=== PATIENT | female | born 1995 | race Two or more races ===

== ENCOUNTER 2024-12-14 14:07 | Observation (INO) | payer MEDICAID, OTHER ==
[~2024-12-14] VITALS: Ht 154.9 cm; Wt 72.6 kg
--- NOTE | 2024-12-14 14:49 | DVH ---
OB ULTRASOUND, LIMITED CLINICAL INDICATION: nyasia check TECHNIQUE: Multiple grayscale ultrasound and M-mode images were obtained of the pelvis for evaluation of intrauterine . COMPARISON: None FINDINGS: A single living fetus is seen in cephalic presentation. Biophysical profile: 03/28 breathin movements: 2 tone: 2 Amniotic fluid: 2 Placenta: Fundal. Amniotic fluid: Visibly normal. NYASIA 13.06 cm heart rate: 143 beats/min. A complete anatomic survey was not performed on this exam. IMPRESSION: 1. Biophysical profile: 03/28 2. NYASIA 13.06 cm
--- NOTE | 2024-12-14 18:40 | DVHDS2 ---
Physician Discharge Progress N Final Diagnosis: IUP 36 wk, Oligohydramnios (resolved) Operations or Procedures: Operations or Procedures NST/BPP/ NYASIA all normal PATIENT: JESUS ALBERTO DEUTSCH ACCT: [id number] UNIT: [id number] : 1995 LOC: LD ROOM / BED: TRIAGE1 / A AGE / SEX: 29 / F ADM STATUS: ADM IN SERVICE 1407 ORDERING PHYSICIAN: ADAMARIS ECHEVERRIA DO PROCEDURE(s): BPP - BIOPHYSICAL PROFILE REASON: nyasia check ORDER NUMBER(s): [id number], ACCESSION NUMBER(s): [id number] OB ULTRASOUND, LIMITED CLINICAL INDICATION: nyasia check TECHNIQUE: Multiple grayscale ultrasound and M-mode images were obtained of the pelvis for evaluation of intrauterine . COMPARISON: None FINDINGS: A single living fetus is seen in cephalic presentation. Biophysical profile: 03/28 breathin movements: 2 tone: 2 Amniotic fluid: 2 Placenta: Fundal. Amniotic fluid: Visibly normal. NYASIA 13.06 cm heart rate: 143 beats/min. A complete anatomic survey was not performed on this exam. IMPRESSION: 1. Biophysical profile: 03/28 2. NYASIA 13.06 cm Condition on Discharge: Stable Disposition: Home Discharge Instructions: Diet: Regular Activity: No Restrictions, As Tolerated Follow Up/Referral: PRN Medications: NA Follow Up Care: Discharge Statement: "Patient was advised to return to the ER or call 911 if any headaches, dizziness, shortness of breath, chest pain, abdominal pain, bleeding, fevers, or worsening of medical condition. Patient was counseled about treatment plan, medications, possible side effects, patientverbalized understanding. All questions were answered to the best of my ability. This discharge took greater then 30 minutes in planning, reviewing documentation, counseling the patient, and discussing with other team members." Visit Coding OBGYN Date of Service: Dec 14, 2024 Billing Provider: ADAMARIS ECHEVERRIA DO LINER MAN Common Visit Codes: [id number] SAME DATE (MOD) ADAMARIS ECHEVERRIA DO Dec 14, 2024 18:40
== END 2024-12-14 15:22 | disposition home or self-care (01) ==
LOC: LDRP 14:07
PROVIDERS: ADMIT Obstetrics & Gynecology; ATTEND Obstetrics & Gynecology
DX: O41.03X0 Oligohydramnios, third trimester, not applicable or unspecified (principal); Z98.890 Other specified postprocedural states; Z79.899 Other long term (current) drug therapy; Z3A.36 36 weeks gestation of pregnancy
CPT/HCPCS: 59025; 76819; 81002; 94760; G0378

== ENCOUNTER 2024-12-17 19:03 | Inpatient (IN) | payer MEDICAID ==
[~2024-12-17] VITALS: Ht 154.9 cm; Wt 72.6 kg
[2024-12-17 21:02] LABS: Urine Bacteria None Seen /hpf (None Seen)
[2024-12-17 21:12] LABS: Basophils # (auto) 0 10 ^3/uL (0-0.2); Basophils % (auto) 0.3 % (0.0-2.0); Eosinophils # (auto) 0.1 10 ^3/uL (0-0.8); Eosinophils % (auto) 1.2 % (0.0-7.0); Hematocrit 32.4 % (36.0-46.0); Hemoglobin 10.7 g/dL (12.2-16.2); Lymphocytes # (auto) 1.9 10 ^3/uL (0.4-5.4); Lymphocytes % (auto) 22.2 % (10.0-50.0); Mean Corpuscular Hemoglobin 27.1 pg (28.0-32.0); Mean Corpuscular Volume 82.2 fL (80.0-100.0); Monocytes % (auto) 11.4 % (0.0-12.0); Neutrophils # (auto) 5.6 10 ^3/uL (1.6-8.6); Neutrophils % (auto) 64.9 % (37.0-80.0); Nucleated Red Blood Cells % 0.1 %; Platelet Count (auto) 246 10^3/uL (140-450); Red Blood Cells 3.94 10^6/uL (4.0-5.20); Red Cell Distribution Width 14.5 % (11.8-14.3); White Blood Cell 8.5 10^3/uL (4.4-10.8)
[2024-12-17 21:23] LABS: Alanine Aminotransferase 17 U/L (7-40); Albumin 3.8 g/dL (3.2-4.8); Anion Gap 10 (5-15); Aspartate Aminotransferase 19 U/L (13-40); BUN/Creatinine Ratio 10.6 (10.0-20.0); Bilirubin, Total 0.3 mg/dL (0.2-1.0); Calcium 9.5 mg/dL (8.7-10.4); Carbon Dioxide 21 mmol/L (20-31); Chloride 106 mmol/L (98-107); Glucose 96 mg/dL (74-106); Potassium 3.8 mmol/L (3.5-5.1); Sodium 137 mmol/L (136-145)
[2024-12-17 21:29] LABS: INR 0.94 (0.9-1.15); Partial Thromboplastin Time 27.1 SEC (24.5-34.5)
[2024-12-17 21:31] LABS: Amphetamine Screen, Urine Neg (NEGATIVE); Barbiturate Scree,Urine Neg (NEGATIVE); Benzodiazephine Screen, Urine Neg (NEGATIVE); Cannabinoid Screen, Urine Neg (NEGATIVE); Cocaine Screen, Urine Neg (NEGATIVE); Opiate Scree,Urine Neg (NEGATIVE); Phencyclidine Screen, Urine Neg (NEGATIVE)
[2024-12-17 21:31] LABS: Alkaline Phosphatase 190 U/L (46-116); Blood Urea Nitrogen 5 mg/dL (9-23)
[2024-12-17 21:33] LABS: Urine Blood Negative /uL (Negative); Urine Clarity Turbid (Clear); Urine Color Light-Yellow (Yellow); Urine Protein, UAD Negative (Negative); Urine Specific Gravity 1.008 (1.001-1.035); Urine Squamous Epithelial Cell MOD /hpf (<5); Urine Urobilinogen Normal (Negative); Urine WBC 2 /HPF (0-5); Urine pH 5.5 (5.0-9.0)
[2024-12-17] MEDS: miSOPROStol 50 MCG per PRE-CUT 1/2 TAB PO PRN (22:17)
--- NOTE | 2024-12-17 22:25 | DVHHP2 ---
OB CC & HPI Date Date of Admission: Dec 17, 2024 Patient Identification: : 2 Para: 1 EDC: December 22, 2024 EGA: 39.2wks Chief Complaints: Reason for admission: induction of labor Indication for induction: other (elective) History of Present Complaints 29yo IUP@39.2wks presents for scheduled elective IOL. Denies UCs/LOF/VB/MAYS/vision changes/RUQ pain. Endorses +FM and +BH occasionally. PNC: Routine PNC at [facility] OB, adequate visits, PNC uncomplicated. GTT wnl, dating based on LMP c/w 11wk sono, GBS positive. OB hx: x1, uncomplicated in 2016 Past Medical History Cardiac: No pertinent Hx Pulmonary: No pertinent Hx Central Nervous System: No pertinent Hx GI: No pertinent Hx Hemotology/Oncology: No pertinent Hx Hepatobiliary: No pertinent Hx Psychiatric: No pertinent Hx Musculoskeletal: No pertinent Hx Rheumotologic: No pertinent Hx Infectious Disease: No peritnent Hx ENT: No pertinent Hx Renal/: No pertinent Hx Endocrine: No pertinent Hx Dermatology: No pertinent Hx Past Surgical History: No pertinent Hx OB History OB History Care: Good Care Ultrasounds: Normal mid trimester US Obstetrical Complications: None Medical Complications: None Allergies: Coded Allergies: NO KNOWN ALLERGIES (Unverified , 12/14/24) Home Meds PNV Current Medications Current Medications Medications (Trade) Dose Ordered Sig/Rosina Route PRN Reason Start Time Stop Time Status Last Admin Lactated Ringer's 1,000 ml @ 125 mls/hr Q8H IV 12/17/24 20:15 Penicillin G Potassium [id number] units/Dextrose 50 ml @ 100 mls/hr Q4H IV 12/18/24 01:00 Demetrio Horan (Tucks) 1 pad PRN PRN TOP PERINEAL AREA DISCOMFORT 12/17/24 20:15 Sodium Lauryl Sulfate (Phisoderm) 240 ml PRN PRN TOP PERINEAL AREA DISCOMFORT 12/17/24 20:15 Benzocaine (Dermoplast) 1 applic PRN PRN TOP PERINEAL AREA DISCOMFORT 12/17/24 20:15 Lidocaine HCl (Xylocaine) 40 ml ONCE PRN IJ PERINEAL AREA DISCOMFORT 12/17/24 20:15 Misoprostol (Cytotec) 50 mcg Q4HPRN PRN PO CERVICAL RIPENING 12/17/24 22:00 UNV Family & Social History Family/Social History Past Family/Social History: denies Blood Type: A+ Rubella: not immune RPR/VDRL: Negative GBS Status: Positive HBsAG: Negative Review of Systems Constitutional: No symptom reported Ears, Nose, & Throat: No symptom reported Eyes: No symptom reported Pulmonary/Respiratory: No symptom reported Cardiovascular: No symptom reported Gastrointestinal: No symptom reported Genitourinary: No symptom reported Musculoskeletal: No symptom reported Skin: No symptom reported Psychiatric: No symptom reported Endocrine: No symptom reported Hemotologic/Lymphatic: No symptom reported OB Admission Exam Physical Exam Vitals: VSS, see CPN EFW in office today 7lbs 7oz, vertex HEENT: TMs Normal, Fontanelles Normal, Nasal Mucosa Normal, Eyes non-injected, Oropharynx Normal, PERRLA, Moist Membranes, EOMI Heart: Rhythm Normal Lungs: Clear Abdomen: Gravid Extremities: Normal Reflexes: Normal Pelvic Exam: SVE by CNM: 1.5/50/-2, intact, vertex Heart Rate: 120's Accelerations: Accelerations Present Decelerations: No Decelerations Supervisor In Circuit Testing Variability: Average (6-25) Contractions on Admission: None OB Plan Plan Admitting Diagnosis: 29yo IUP@39.2wks Elective Induction of Labor Category I EFM Intact Membranes GBS positive Plan: Induction Induction Methd: Misoprostol protocol Other Plan: Admit to L&D Informed consent obtained Discussed risks, benefits, alternatives of IOL with pt. Pt consents to IOL with cytotec. Start IV PCN when in active labor or ROM monitoring per order Routine labs ordered Pain mgmt PRN Frequent position changes in and out of bed encouraged Limit SVE unless necessary Intrauterine resuscitation PRN Anticipate CNM will consult with Dr. Alonso PRN Visit Coding OBGYN Date of Service: Dec 17, 2024 Billing Provider: AYDEE ARNOLD CNM HUMAN PERFORMANCE CONSULTANT Common Visit Codes: [id number] INP/OBS CARE (MOD) HUMAN PERFORMANCE CONSULTANT Procedure Codes: 82903-08- NON-STRESS TEST AYDEE ARNOLD CNM Dec 17, 2024 22:25
--- NOTE | 2024-12-18 09:10 | DVHPN2 ---
Chief Complaints Patient reports: No new complaints Nursing reports: No new complaints Objective Medications Current Medications Medications (Trade) Dose Ordered Sig/Rosina Route PRN Reason Start Time Stop Time Status Last Admin Benzocaine (Dermoplast) 1 applic PRN PRN TOP PERINEAL AREA DISCOMFORT 12/17/24 20:15 Lactated Ringer's 1,000 ml @ 125 mls/hr Q8H IV 12/17/24 20:15 Lidocaine HCl (Xylocaine) 40 ml ONCE PRN IJ PERINEAL AREA DISCOMFORT 12/17/24 20:15 Misoprostol (Cytotec) 50 mcg Q4HPRN PRN PO CERVICAL RIPENING 12/17/24 22:00 12/18/24 06:29 Penicillin G Potassium [id number] units/Dextrose 50 ml @ 100 mls/hr Q4H IV 12/18/24 01:00 Sodium Lauryl Sulfate (Phisoderm) 240 ml PRN PRN TOP PERINEAL AREA DISCOMFORT 12/17/24 20:15 Witch Marline (Tucks) 1 pad PRN PRN TOP PERINEAL AREA DISCOMFORT 12/17/24 20:15 Others ve-2cm/60/-2 Studies Laboratory Tests 12/17/24 20:44 Test 12/17/24 20:44 Range/Units Serum Glucose 96 74-106 mg/dL Ass/Plan Assessment iol Plan rec cytotec rec epidural supportive care Visit Coding OBGYN Date of Service: Dec 18, 2024 Billing Provider: SURJIT DUARTE DO LEAD REFINER Common Visit Codes: [id number] INP/OBS CARE(HIGH) LEAD REFINER Procedure Codes: 74633-48- NON-STRESS TEST SURJIT DUARTE DO Dec 18, 2024 09:10
[2024-12-18] MEDS: WITCH HAZEL-GLYCERIN PAD TOP PRN (09:46)
[2024-12-18] MEDS: PHISODERM TOP SOLN 240ML BTL TOP PRN (09:46)
[2024-12-18] MEDS: DERMOPLAST 60ML BOTTLE TOP PRN (09:46)
[2024-12-18] MEDS: PENICILLIN G POT 5MIL/D5 50ML 50 ML IV ONE (10:10)
[2024-12-18] MEDS ORDERED: NALOXONE HCL 0.4 MG/ML VIAL IV ONE (10:15)
[2024-12-18] MEDS: ePHEDrine SULFATE 50 MG/ML AMP IV ONE (12:32)
[2024-12-18] MEDS ORDERED: TERBUTALINE SULFATE 1 MG/ML 1ML VIAL SC PRN (12:45)
[2024-12-18] MEDS: PENICILLIN G POTASSIUM 2,500,000 UNITS in D5W 5% 50 ML IV SCH (14:10)
[2024-12-18] MEDS: LACTATED RINGER'S 1,000 ML IV SCH (14:11)
[2024-12-18] MEDS: ROPIVACAINE HCL 200 ML ONE (14:16)
[2024-12-18] MEDS: LACT. RINGERS/OXYTOCIN 20UNITS 1,000 ML IV SCH (14:17)
--- NOTE | 2024-12-18 15:43 | DVHPN2 ---
CNM Labor Progress Note Date and Time Seen Date Seen: Dec 18, 2024 Time Seen: 15:00 Subjective Patient reports: No new complaints Subjective Comment Pt feels good post epidural; resting on her left side Objective Vital Signs VSS. see chart Monitoring Method Monitoring Method: External Heart Rate Heart Rate Baseline: 130 Heart Rate Variability: Moderate Presence of FHR Accelerations: Yes Presence of FHR Decelerations: No Changes in Trends of Patterns: No Are all 5 Components of the FH: Yes Contractions Contractions Frequency: Other (2-5) Duration of Contraction: 70 Contractions Intensity: Moderate Contractions Resting Tone: Relaxed Membranes Membranes: Intact Vaginal Exam Vag Exam Deferred: Yes (RN vaginal exam at 1139: 4-5/70%/-2) Medications Medications - Pitocin: Yes (4 mUs) Medication - Epidural: Yes Lab Results Lab Results Current Medications Medications (Trade) Dose Ordered Sig/Rosina Start Time Stop Time Status Last Admin Dose Admin Lactated Ringer's 1,000 ml @ 125 mls/hr Q8H 12/17/24 20:15 12/18/24 14:11 125 MLS/HR Penicillin G Potassium 50 ml @ 100 mls/hr ONCE ONCE 12/17/24 21:00 12/17/24 21:29 DC 12/18/24 10:10 100 MLS/HR Penicillin G Potassium [id number] units/Dextrose 50 ml @ 100 mls/hr Q4H 12/18/24 01:00 12/18/24 14:10 100 MLS/HR Witch Marline (Tucks) 1 pad PRN PRN 12/17/24 20:15 12/18/24 09:46 1 PAD Sodium Lauryl Sulfate (Phisoderm) 240 ml PRN PRN 12/17/24 20:15 12/18/24 09:46 240 ML Benzocaine (Dermoplast) 1 applic PRN PRN 12/17/24 20:15 12/18/24 09:46 1 APPLIC Lidocaine HCl (Xylocaine) 40 ml ONCE PRN 12/17/24 20:15 Oxytocin 500 ml @ 999 mls/hr Q31M ONCE 12/18/24 08:00 12/18/24 08:30 DC Oxytocin 500 ml @ 125 mls/hr Q4H ONCE 12/18/24 08:30 12/18/24 12:29 DC Misoprostol (Cytotec) 50 mcg Q4HPRN PRN 12/17/24 22:00 12/18/24 06:29 50 MCG Naloxone HCl (Narcan) 0.2 mg PRN ONCE 12/18/24 10:15 12/18/24 10:16 DC Ephedrine Sulfate (ePHEDrine SULFATE) 10 mg PRN ONCE 12/18/24 10:15 12/18/24 10:16 DC 12/18/24 12:32 5 MG Oxytocin 1,000 ml @ 6 ml/hr Q24H 12/18/24 12:45 12/18/24 14:17 6 ML/HR Terbutaline Sulfate (Brethine Inj) 0.25 mg ONCE PRN 12/18/24 12:45 Laboratory Tests Test 12/17/24 20:44 12/17/24 20:20 Range/Units White Blood Count 8.5 4.4-10.8 10^3/uL Red Blood Count 3.94 L 4.0-5.20 10^6/uL Hemoglobin 10.7 L 12.2-16.2 g/dL Hematocrit 32.4 L 36.0-46.0 % Mean Corpuscular Volume 82.2 80.0-100.0 fL Mean Corpuscular Hemoglobin 27.1 L 28.0-32.0 pg Mean Corpuscular Hemoglobin Concent 33.0 32.0-36.0 g/dL Red Cell Distribution Width 14.5 H 11.8-14.3 % Platelet Count 246 140-450 10^3/uL Mean Platelet Volume 8.1 6.9-10.8 fL Neutrophils (%) (Auto) 64.9 37.0-80.0 % Lymphocytes (%) (Auto) 22.2 10.0-50.0 % Monocytes (%) (Auto) 11.4 0.0-12.0 % Eosinophils (%) (Auto) 1.2 0.0-7.0 % Basophils (%) (Auto) 0.3 0.0-2.0 % Neutrophils # (Auto) 5.6 1.6-8.6 10 ^3/uL Lymphocytes # (Auto) 1.9 0.4-5.4 10 ^3/uL Monocytes # (Auto) 1.0 0-1.3 10 ^3/uL Eosinophils # (Auto) 0.1 0-0.8 10 ^3/uL Basophils # (Auto) 0 0-0.2 10 ^3/uL Nucleated Red Blood Cells 0.1 % Prothrombin Time 10.0 9.3-11.8 sec Prothrombin Time INR 0.94 0.9-1.15 Activated Partial Thromboplast Time 27.1 24.5-34.5 SEC Sodium Level 137 136-145 mmol/L Potassium Level 3.8 3.5-5.1 mmol/L Chloride Level 106 98-107 mmol/L Carbon Dioxide Level 21 20-31 mmol/L Anion Gap 10 5-15 Blood Urea Nitrogen 5 L 9-23 mg/dL Creatinine 0.47 L 0.550-1.02 mg/dL Glomerular Filtration Rate Calc 131 >90 mL/min BUN/Creatinine Ratio 10.6 10.0-20.0 Serum Glucose 96 74-106 mg/dL Calcium Level 9.5 8.7-10.4 mg/dL Total Bilirubin 0.3 0.2-1.0 mg/dL Aspartate Amino Transferase (AST) 19 13-40 U/L Alanine Aminotransferase (ALT) 17 7-40 U/L Alkaline Phosphatase 190 H 46-116 U/L Total Protein 6.0 5.7-8.2 g/dL Albumin 3.8 3.2-4.8 g/dL Treponema pallidum Antibody Non-reactive Negative Urine Color Light-yellow Yellow Urine Clarity Turbid H Clear Urine pH 5.5 5.0-9.0 Urine Specific [place] 1.008 1.001-1.035 Urine Protein Negative Negative Urine Ketones Negative Negative Urine Blood Negative Negative /uL Urine Nitrite Negative Negative Urine Bilirubin Negative Negative Urine Urobilinogen Normal Negative mg/dL Urine Leukocyte Esterase Negative Negative /uL Urine RBC 1 0 - 4 /hpf Urine Microscopic WBC 2 0-5 /HPF Urine Squamous Epithelial Cells Mod <5 /hpf Urine Bacteria None seen None Seen /hpf Urine Glucose Normal Normal mg/dL Urine Opiates Screen Neg NEGATIVE Urine Fentanyl Screen Neg NEGATIVE Urine Barbiturates Screen Neg NEGATIVE Urine Phencyclidine Screen Neg NEGATIVE Urine Amphetamines Screen Neg NEGATIVE Urine Benzodiazepines Screen Neg NEGATIVE Urine Cocaine Screen Neg NEGATIVE Urine Cannabinoids Screen Neg NEGATIVE Assessment Assessment 29yo IUP@39.3wks Elective Induction of Labor Category I EFM Intact Membranes GBS positive Plan Plan Continue induction with Pitocin per protocol Continue IV PCN until delivery Continuous monitoring Pain mgmt via epidural anesthesia Frequent position changes in bed encouraged Limit SVE unless necessary Intrauterine resuscitation PRN Anticipate CNM will consult with Dr. Alonso PRN Plan discussed with: Patient, Spouse Visit Coding OBGYN Date of Service: Dec 18, 2024 Billing Provider: AYDEE ARNOLD CNM ATHLETIC FIELD CUSTODIAN Common Visit Codes: [id number] INP/OBS CARE(MOD) JESÚS SMITH MDWF Dec 18, 2024 15:43
--- NOTE | 2024-12-18 18:26 | DVHPN2 ---
CNM Labor Progress Note Date and Time Seen Date Seen: Dec 18, 2024 Time Seen: 18:05 Subjective Patient reports: Other Subjective Comment Pt reports feeling intermittent pressure and feels like water is coming out of her vagina Objective Vital Signs VSS, see chart Monitoring Method Monitoring Method: External Heart Rate Heart Rate Baseline: 130 Heart Rate Variability: Moderate Presence of FHR Accelerations: Yes Presence of FHR Decelerations: Yes Heart Rate Type of Decel: Variable Decelerations Changes in Trends of Patterns: Yes Comment on Trends or Patterns: maternal position changed Are all 5 Components of the FH: Yes Contractions Contractions Frequency: Other (2-4) Duration of Contraction: 70 Contractions Intensity: Strong Membranes Membranes: Ruptured Amniotic Fluid Color: Clear, Bloody Vaginal Exam Vag Exam Deferred: No (6.5 dilation) Vaginal Exam Effacement: 90 Vaginal Exam Station: -1 Vaginal Exam Presentation: VTX Vaginal Exam Show: Small Medications Medications - Pitocin: Yes (10mU dropped down to 6 mU based on FHR tracing) Medication - Epidural: Yes Medication - Other IV PCN for GBS+ s/p 3 doses of cytotec Lab Results Lab Results Current Medications Medications (Trade) Dose Ordered Sig/Rosina Start Time Stop Time Status Last Admin Dose Admin Lactated Ringer's 1,000 ml @ 125 mls/hr Q8H 12/17/24 20:15 12/18/24 14:11 125 MLS/HR Penicillin G Potassium 50 ml @ 100 mls/hr ONCE ONCE 12/17/24 21:00 12/17/24 21:29 DC 12/18/24 10:10 100 MLS/HR Penicillin G Potassium [id number] units/Dextrose 50 ml @ 100 mls/hr Q4H 12/18/24 01:00 12/18/24 18:22 100 MLS/HR Demetrio Horan (Tucks) 1 pad PRN PRN 12/17/24 20:15 12/18/24 09:46 1 PAD Sodium Lauryl Sulfate (Phisoderm) 240 ml PRN PRN 12/17/24 20:15 12/18/24 09:46 240 ML Benzocaine (Dermoplast) 1 applic PRN PRN 12/17/24 20:15 12/18/24 09:46 1 APPLIC Lidocaine HCl (Xylocaine) 40 ml ONCE PRN 12/17/24 20:15 Oxytocin 500 ml @ 999 mls/hr Q31M ONCE 12/18/24 08:00 12/18/24 08:30 DC Oxytocin 500 ml @ 125 mls/hr Q4H ONCE 12/18/24 08:30 12/18/24 12:29 DC Misoprostol (Cytotec) 50 mcg Q4HPRN PRN 12/17/24 22:00 12/18/24 06:29 50 MCG Naloxone HCl (Narcan) 0.2 mg PRN ONCE 12/18/24 10:15 12/18/24 10:16 DC Ephedrine Sulfate (ePHEDrine SULFATE) 10 mg PRN ONCE 12/18/24 10:15 12/18/24 10:16 DC 12/18/24 12:32 5 MG Oxytocin 1,000 ml @ 6 ml/hr Q24H 12/18/24 12:45 12/18/24 14:17 6 ML/HR Terbutaline Sulfate (Brethine Inj) 0.25 mg ONCE PRN 12/18/24 12:45 Laboratory Tests Test 12/17/24 20:44 12/17/24 20:20 Range/Units White Blood Count 8.5 4.4-10.8 10^3/uL Red Blood Count 3.94 L 4.0-5.20 10^6/uL Hemoglobin 10.7 L 12.2-16.2 g/dL Hematocrit 32.4 L 36.0-46.0 % Mean Corpuscular Volume 82.2 80.0-100.0 fL Mean Corpuscular Hemoglobin 27.1 L 28.0-32.0 pg Mean Corpuscular Hemoglobin Concent 33.0 32.0-36.0 g/dL Red Cell Distribution Width 14.5 H 11.8-14.3 % Platelet Count 246 140-450 10^3/uL Mean Platelet Volume 8.1 6.9-10.8 fL Neutrophils (%) (Auto) 64.9 37.0-80.0 % Lymphocytes (%) (Auto) 22.2 10.0-50.0 % Monocytes (%) (Auto) 11.4 0.0-12.0 % Eosinophils (%) (Auto) 1.2 0.0-7.0 % Basophils (%) (Auto) 0.3 0.0-2.0 % Neutrophils # (Auto) 5.6 1.6-8.6 10 ^3/uL Lymphocytes # (Auto) 1.9 0.4-5.4 10 ^3/uL Monocytes # (Auto) 1.0 0-1.3 10 ^3/uL Eosinophils # (Auto) 0.1 0-0.8 10 ^3/uL Basophils # (Auto) 0 0-0.2 10 ^3/uL Nucleated Red Blood Cells 0.1 % Prothrombin Time 10.0 9.3-11.8 sec Prothrombin Time INR 0.94 0.9-1.15 Activated Partial Thromboplast Time 27.1 24.5-34.5 SEC Sodium Level 137 136-145 mmol/L Potassium Level 3.8 3.5-5.1 mmol/L Chloride Level 106 98-107 mmol/L Carbon Dioxide Level 21 20-31 mmol/L Anion Gap 10 5-15 Blood Urea Nitrogen 5 L 9-23 mg/dL Creatinine 0.47 L 0.550-1.02 mg/dL Glomerular Filtration Rate Calc 131 >90 mL/min BUN/Creatinine Ratio 10.6 10.0-20.0 Serum Glucose 96 74-106 mg/dL Calcium Level 9.5 8.7-10.4 mg/dL Total Bilirubin 0.3 0.2-1.0 mg/dL Aspartate Amino Transferase (AST) 19 13-40 U/L Alanine Aminotransferase (ALT) 17 7-40 U/L Alkaline Phosphatase 190 H 46-116 U/L Total Protein 6.0 5.7-8.2 g/dL Albumin 3.8 3.2-4.8 g/dL Treponema pallidum Antibody Non-reactive Negative Urine Color Light-yellow Yellow Urine Clarity Turbid H Clear Urine pH 5.5 5.0-9.0 Urine Specific [place] 1.008 1.001-1.035 Urine Protein Negative Negative Urine Ketones Negative Negative Urine Blood Negative Negative /uL Urine Nitrite Negative Negative Urine Bilirubin Negative Negative Urine Urobilinogen Normal Negative mg/dL Urine Leukocyte Esterase Negative Negative /uL Urine RBC 1 0 - 4 /hpf Urine Microscopic WBC 2 0-5 /HPF Urine Squamous Epithelial Cells Mod <5 /hpf Urine Bacteria None seen None Seen /hpf Urine Glucose Normal Normal mg/dL Urine Opiates Screen Neg NEGATIVE Urine Fentanyl Screen Neg NEGATIVE Urine Barbiturates Screen Neg NEGATIVE Urine Phencyclidine Screen Neg NEGATIVE Urine Amphetamines Screen Neg NEGATIVE Urine Benzodiazepines Screen Neg NEGATIVE Urine Cocaine Screen Neg NEGATIVE Urine Cannabinoids Screen Neg NEGATIVE Assessment Assessment 29yo IUP@39.3wks Elective Induction of Labor Category II EFM SROM, clear fluid GBS positive Plan Plan Continue induction with Pitocin per protocol Continue IV PCN until delivery Continuous monitoring Pain mgmt via epidural anesthesia Frequent position changes in bed encouraged Limit SVE unless necessary Intrauterine resuscitation PRN Anticipate CNM will consult with Dr. Alonso PRN Plan discussed with: Patient, Spouse Visit Coding OBGYN Date of Service: Dec 18, 2024 Billing Provider: AYDEE ARNOLD CNM FINAL APPLICATION REVIEWER Common Visit Codes: [id number] INP/OBS CARE(MOD) JESÚS SMITH MDWF Dec 18, 2024 18:26
--- NOTE | 2024-12-18 19:11 | DVHPN2 ---
CNM Labor Progress Note Date and Time Seen Date Seen: Dec 18, 2024 Time Seen: 18:40 Subjective Patient reports: Other Subjective Comment Pt reports feeling more intense pressure in her vagina/rectum but is tolerating well Objective Vital Signs VSS, see chart Monitoring Method Monitoring Method: External Heart Rate Heart Rate Baseline: 135 Heart Rate Variability: Moderate Presence of FHR Accelerations: Yes Presence of FHR Decelerations: Yes Heart Rate Type of Decel: Variable Decelerations Changes in Trends of Patterns: Yes Comment on Trends or Patterns: Consistent position changes Are all 5 Components of the FH: Yes Contractions Contractions Frequency: Other (2-4) Contractions Intensity: Strong Contractions Resting Tone: Relaxed Membranes Membranes: Ruptured Amniotic Fluid Color: Clear, Bloody Vaginal Exam Vag Exam Deferred: No (IUPC inserted for Amnioinfusion) Vaginal Exam Dilation: 8 Vaginal Exam Effacement: 100 Vaginal Exam Station: -1 Vaginal Exam Presentation: VTX Vaginal Exam Show: Moderate Medications Medications - Pitocin: No (Pitocin off after being at 6 mU) Medication - Epidural: Yes Medication - Other IV PCN for GBS+ s/p 3 doses of cytotec Lab Results Lab Results Current Medications Medications (Trade) Dose Ordered Sig/Rosina Start Time Stop Time Status Last Admin Dose Admin Lactated Ringer's 1,000 ml @ 125 mls/hr Q8H 12/17/24 20:15 12/18/24 14:11 125 MLS/HR Penicillin G Potassium 50 ml @ 100 mls/hr ONCE ONCE 12/17/24 21:00 12/17/24 21:29 DC 12/18/24 10:10 100 MLS/HR Penicillin G Potassium [id number] units/Dextrose 50 ml @ 100 mls/hr Q4H 12/18/24 01:00 12/18/24 18:22 100 MLS/HR Witch Marline (Tucks) 1 pad PRN PRN 12/17/24 20:15 12/18/24 09:46 1 PAD Sodium Lauryl Sulfate (Phisoderm) 240 ml PRN PRN 12/17/24 20:15 12/18/24 09:46 240 ML Benzocaine (Dermoplast) 1 applic PRN PRN 12/17/24 20:15 12/18/24 09:46 1 APPLIC Lidocaine HCl (Xylocaine) 40 ml ONCE PRN 12/17/24 20:15 Oxytocin 500 ml @ 999 mls/hr Q31M ONCE 12/18/24 08:00 12/18/24 08:30 DC Oxytocin 500 ml @ 125 mls/hr Q4H ONCE 12/18/24 08:30 12/18/24 12:29 DC Misoprostol (Cytotec) 50 mcg Q4HPRN PRN 12/17/24 22:00 12/18/24 06:29 50 MCG Naloxone HCl (Narcan) 0.2 mg PRN ONCE 12/18/24 10:15 12/18/24 10:16 DC Ephedrine Sulfate (ePHEDrine SULFATE) 10 mg PRN ONCE 12/18/24 10:15 12/18/24 10:16 DC 12/18/24 12:32 5 MG Oxytocin 1,000 ml @ 6 ml/hr Q24H 12/18/24 12:45 12/18/24 14:17 6 ML/HR Terbutaline Sulfate (Brethine Inj) 0.25 mg ONCE PRN 12/18/24 12:45 Sodium Chloride 1,000 ml @ 500 mls/hr Q2H ONCE 12/18/24 19:15 12/18/24 21:14 Sodium Chloride 1,000 ml @ 100 mls/hr Q10H 12/18/24 19:15 Laboratory Tests Test 12/17/24 20:44 12/17/24 20:20 Range/Units White Blood Count 8.5 4.4-10.8 10^3/uL Red Blood Count 3.94 L 4.0-5.20 10^6/uL Hemoglobin 10.7 L 12.2-16.2 g/dL Hematocrit 32.4 L 36.0-46.0 % Mean Corpuscular Volume 82.2 80.0-100.0 fL Mean Corpuscular Hemoglobin 27.1 L 28.0-32.0 pg Mean Corpuscular Hemoglobin Concent 33.0 32.0-36.0 g/dL Red Cell Distribution Width 14.5 H 11.8-14.3 % Platelet Count 246 140-450 10^3/uL Mean Platelet Volume 8.1 6.9-10.8 fL Neutrophils (%) (Auto) 64.9 37.0-80.0 % Lymphocytes (%) (Auto) 22.2 10.0-50.0 % Monocytes (%) (Auto) 11.4 0.0-12.0 % Eosinophils (%) (Auto) 1.2 0.0-7.0 % Basophils (%) (Auto) 0.3 0.0-2.0 % Neutrophils # (Auto) 5.6 1.6-8.6 10 ^3/uL Lymphocytes # (Auto) 1.9 0.4-5.4 10 ^3/uL Monocytes # (Auto) 1.0 0-1.3 10 ^3/uL Eosinophils # (Auto) 0.1 0-0.8 10 ^3/uL Basophils # (Auto) 0 0-0.2 10 ^3/uL Nucleated Red Blood Cells 0.1 % Prothrombin Time 10.0 9.3-11.8 sec Prothrombin Time INR 0.94 0.9-1.15 Activated Partial Thromboplast Time 27.1 24.5-34.5 SEC Sodium Level 137 136-145 mmol/L Potassium Level 3.8 3.5-5.1 mmol/L Chloride Level 106 98-107 mmol/L Carbon Dioxide Level 21 20-31 mmol/L Anion Gap 10 5-15 Blood Urea Nitrogen 5 L 9-23 mg/dL Creatinine 0.47 L 0.550-1.02 mg/dL Glomerular Filtration Rate Calc 131 >90 mL/min BUN/Creatinine Ratio 10.6 10.0-20.0 Serum Glucose 96 74-106 mg/dL Calcium Level 9.5 8.7-10.4 mg/dL Total Bilirubin 0.3 0.2-1.0 mg/dL Aspartate Amino Transferase (AST) 19 13-40 U/L Alanine Aminotransferase (ALT) 17 7-40 U/L Alkaline Phosphatase 190 H 46-116 U/L Total Protein 6.0 5.7-8.2 g/dL Albumin 3.8 3.2-4.8 g/dL Treponema pallidum Antibody Non-reactive Negative Urine Color Light-yellow Yellow Urine Clarity Turbid H Clear Urine pH 5.5 5.0-9.0 Urine Specific Sunflower 1.008 1.001-1.035 Urine Protein Negative Negative Urine Ketones Negative Negative Urine Blood Negative Negative /uL Urine Nitrite Negative Negative Urine Bilirubin Negative Negative Urine Urobilinogen Normal Negative mg/dL Urine Leukocyte Esterase Negative Negative /uL Urine RBC 1 0 - 4 /hpf Urine Microscopic WBC 2 0-5 /HPF Urine Squamous Epithelial Cells Mod <5 /hpf Urine Bacteria None seen None Seen /hpf Urine Glucose Normal Normal mg/dL Urine Opiates Screen Neg NEGATIVE Urine Fentanyl Screen Neg NEGATIVE Urine Barbiturates Screen Neg NEGATIVE Urine Phencyclidine Screen Neg NEGATIVE Urine Amphetamines Screen Neg NEGATIVE Urine Benzodiazepines Screen Neg NEGATIVE Urine Cocaine Screen Neg NEGATIVE Urine Cannabinoids Screen Neg NEGATIVE Assessment Assessment 29yo IUP@39.3wks Elective Induction of Labor Category II EFM SROM, clear fluid GBS positive Plan Plan Continue induction Hold Pitocin per protocol Begin Amnioinfusion with NS 500mL bolus then continuous dose at 100 mL/hr Continue IV PCN until delivery Continuous monitoring Pain mgmt via epidural anesthesia Frequent position changes in bed encouraged Limit SVE unless necessary Intrauterine resuscitation PRN Anticipate CNM will consult with Dr. Alonso PRN Plan discussed with: Patient, Spouse Visit Coding OBGYN Date of Service: Dec 18, 2024 Billing Provider: AYDEE ARNOLD CNM RN CASE MANAGER Common Visit Codes: [id number] INP/OBS CARE(HIGH) JESÚS SMITH MDWF Dec 18, 2024 19:11
[2024-12-18] MEDS: SODIUM CHLORIDE 0.9% 1,000 ML IUPC SCH (20:56)
[2024-12-18] MEDS: SODIUM CHLORIDE 0.9% 1,000 ML IUPC ONE (20:56)
[2024-12-18] MEDS: MINERAL OIL TOPICAL 10ml TOP ONE ×2 (21:10→23:35)
[2024-12-18] MEDS: METHYLERGONOVINE MALEATE 0.2 MG/ML AMP IM ONE ×2 (23:03→23:40)
[2024-12-18] MEDS: LACT. RINGERS/OXYTOCIN 20UNITS 500 ML IV ONE (23:37)
[2024-12-18] MEDS: LIDOCAINE 2%HCL (LOCAL ANESTH.) INJ 20ML MDV IJ PRN (23:45)
[2024-12-18] MEDS ORDERED: DOCU-94 PO (23:50)
[2024-12-18] MEDS ORDERED: IBUP-1456 PO (23:50)
[2024-12-18] MEDS ORDERED: PREN-96 PO (23:50)
[2024-12-19] MEDS ORDERED: ACETAMINOPHEN 325 MG TAB PO PRN
[2024-12-19] MEDS ORDERED: ONDANSETRON HCL 4 MG/2 ML VIAL IV PRN
--- NOTE | 2024-12-19 00:02 | LDN2 ---
Labor and Delivery Note Date 12/18/24 Age 29 2 Para 2 AB n/a EDC 12/22/2024 EGA 39.3 weeks Diagnosis elective IOL then , GBS+ treated with 3 doses of PCN Vaginal Delivery: VTX Vacuum Assisted: No Placenta: Spontaneous Sex: Male Weight Pending Apgars 8/9 Nuchal Cord Transected: No Amniotic Fluid: Clear Anesthesia epidural and local anesthesia Episiotomy: No Extension: No Repaired with Left labial laceration repaired with 3-0 Vicryl suture EBL QBL: 1000 mL Labs Blood Bank 12/17/24 20:44: Blood Type A POSITIVE Complications PPH: TXA 1G IVPB given within 30 minutes of , IV Pitocin started before delivery of placenta, and Methergine 0.2 mg IM given after delivery of placenta, manual sweep done to clear clots, Ancef 2G IVPB ordered to be given by RN Conditions Stable Molder Machine Tender Dr. Cohn Comments/Significant Med Tawanda At 2310 this 29yo now delivered a viable Male by w/ APGARS 8/9. RT at bedside during delivery. TXA 1G IVPB given prior to delivery. MANGO with compound (left arm) presentation. placed skin to skin on pts chest. Cord clamped and cut after 2 minutes. Cord gases collected. Intact 3-vessel cord placenta delivered spontaneously, Collette. Pitocin IV bolus started. Placenta sent to pathology. Methergine 0.2 mg IM injection given. Patient had epidural and local anesthesia. Cervix/vagina inspected (intact) and left labial laceration present which was repaired with 3-0 vicryl suture. Manual sweep done, uteru cleared of clots, lower uterine segment firm. Fundus at U-1, firm, midline, and light lochia. QBL 1000ml. VSS. Count correct x2. Patient to post care and baby to couplet care, both stable. Ancef 2g IVPB once ordered. Visit Coding OBGYN Date of Service: Dec 18, 2024 Billing Provider: AYDEE ARNOLD CNM MOBILE HOME LABORER Common Visit Codes: PROCEDURE ONLY MOBILE HOME LABORER Procedure Codes: [id number] DEL INCLUDING JESÚS SMITH STDT MDWF December 19, 2024 00:02
--- NOTE | 2024-12-19 00:24 | DVHPN2 ---
Progress Note Date Seen: December 19, 2024 Subjective bleeding is less, denies lightheaded/dizziness, pain well controlled, due to void, has not ambulated well, vital signs VSS, see CPN medications Current Medications Medications Dose Ordered Sig/Rosina Route Start Time Stop Time Status Last Admin Dose Admin Lactated Ringer's 1,000 ml @ 125 mls/hr Q8H IV 12/17/24 20:15 12/18/24 14:11 125 MLS/HR Penicillin G Potassium [id number] units/Dextrose 50 ml @ 100 mls/hr Q4H IV 12/18/24 01:00 12/18/24 18:22 100 MLS/HR Witch Marline 1 pad PRN PRN TOP 12/17/24 20:15 12/18/24 09:46 1 PAD Sodium Lauryl Sulfate 240 ml PRN PRN TOP 12/17/24 20:15 12/18/24 09:46 240 ML Benzocaine 1 applic PRN PRN TOP 12/17/24 20:15 12/18/24 09:46 1 APPLIC Lidocaine HCl 40 ml ONCE PRN IJ 12/17/24 20:15 12/18/24 23:45 20 ML Misoprostol 50 mcg Q4HPRN PRN PO 12/17/24 22:00 12/18/24 06:29 50 MCG Oxytocin 1,000 ml @ 6 ml/hr Q24H IV 12/18/24 12:45 12/18/24 14:17 6 ML/HR Terbutaline Sulfate 0.25 mg ONCE PRN SC 12/18/24 12:45 Sodium Chloride 1,000 ml @ 100 mls/hr Q10H IUPC 12/18/24 19:15 12/18/24 20:56 100 MLS/HR laboratory and microbiology Laboratory Tests 12/17/24 20:44 Test 12/17/24 20:44 Range/Units Serum Glucose 96 74-106 mg/dL Objective O: VSS Chest: heart sounds normal and lung sounds clear bilaterally Abd: soft, non-tender, fundus at U/firm/midline, active bowel sounds, no rebound or guarding Perineum: sutures intact, edges well approximated, no erythema/edema noted Ext: Non-tender, No edema, 2+ BLE DTRs Lochia: minimal See lab results Problems(with codes): (1) (normal spontaneous vaginal delivery) (2) Obstetric labial laceration, delivered, current hospitalization (3) PPH ( hemorrhage) Assessment/Plan A: 29yo now G2P PPD#1 s/p Rh+ Rubella Nonimmune Pain control with PO medications P: Continue routine PP care MMR vaccine ordered Plan discussed with: Patient, Spouse Visit Coding OBGYN Date of Service: December 19, 2024 Billing Provider: AYDEE ARNOLD CNM PHOTO TUBE ASSEMBLER Common Visit Codes: [id number] INP/OBS CARE(HIGH) JESÚS SMITH MDWF December 19, 2024 00:24
[2024-12-19] MEDS ORDERED: MEASLES, MUMPS & RUBELLA VAC(MMRII) 0.5ML SC ONE (00:30)
[2024-12-19] MEDS: ceFAZolin 2 GM/D5W50ml 50 ML IV STA (00:34)
[2024-12-19] MEDS: LACT. RINGERS/OXYTOCIN 20UNITS 500 ML IV ONE (00:51)
[2024-12-19 03:08] VITALS: BP 112/62; PULSE 75; RESP 18; TEMP 98; O2SAT 98
[2024-12-19 07:00] VITALS: BP 92/57; PULSE 75; RESP 16; TEMP 97.7; O2SAT 98
[2024-12-19 07:30] LABS: Basophils # (auto) 0 10 ^3/uL (0-0.2); Basophils % (auto) 0.2 % (0.0-2.0); Eosinophils # (auto) 0 10 ^3/uL (0-0.8); Eosinophils % (auto) 0.2 % (0.0-7.0); Hemoglobin 9.9 g/dL (12.2-16.2); Lymphocytes # (auto) 1.9 10 ^3/uL (0.4-5.4); Lymphocytes % (auto) 12.9 % (10.0-50.0); Mean Corpuscular Hemoglobin 26.8 pg (28.0-32.0); Mean Corpuscular Volume 81.2 fL (80.0-100.0); Monocytes # (auto) 1.3 10 ^3/uL (0-1.3); Monocytes % (auto) 9.2 % (0.0-12.0); Neutrophils # (auto) 11.3 10 ^3/uL (1.6-8.6); Neutrophils % (auto) 77.5 % (37.0-80.0); Platelet Count (auto) 217 10^3/uL (140-450); Red Cell Distribution Width 14.7 % (11.8-14.3); White Blood Cell 14.5 10^3/uL (4.4-10.8)
[2024-12-19 11:00] VITALS: BP 108/69; PULSE 76; RESP 16; TEMP 97.8; O2SAT 98
[2024-12-19] MEDS: IBUPROFEN 600 MG TAB PO PRN (11:33)
[2024-12-19] MEDS: PRENATAL VITAMIN TAB PO SCH (12:42)
[2024-12-19] MEDS: DOCUSATE SOD 100 MG CAP PO SCH (12:43)
[2024-12-19 15:00] VITALS: BP 96/55; PULSE 93; RESP 18; TEMP 97.5; O2SAT 98
[2024-12-19 19:00] VITALS: BP 101/60; PULSE 84; RESP 17; TEMP 97.9; O2SAT 99
[2024-12-19 23:00] VITALS: BP 110/66; PULSE 68; RESP 16; TEMP 97.9; O2SAT 99
[2024-12-20 03:00] VITALS: BP 102/65; PULSE 84; RESP 18; TEMP 98.1; O2SAT 98
[2024-12-20 07:00] VITALS: BP 106/57; PULSE 74; RESP 18; TEMP 97.8; O2SAT 99
--- NOTE | 2024-12-20 07:54 | DVHPN2 ---
Chief Complaints Patient reports: No new complaints, Other Nursing reports: No new complaints Objective Vitals Vital Signs Date Time Temp Pulse Resp B/P (MAP) Pulse Ox O2 Delivery O2 Flow Rate FiO2 12/20/24 03:00 98.1 84 18 102/65 (77) 98 98.1 12/19/24 18:30 Room Air 12/19/24 07:00 0.0 Medications Current Medications Medications (Trade) Dose Ordered Sig/Rosina Route PRN Reason Start Time Stop Time Status Last Admin Docusate Sodium (Colace Capsule) 200 mg DAILY PO 12/19/24 10:00 12/19/24 12:43 Prenat Multivit/ Sql Database Programmer/Iron/Folic Ac (Prenavite Tablet) 1 DAILY PO 12/19/24 10:00 12/19/24 12:42 General: Normal Lungs: Normal Cardiovascular: Normal Extremities: Normal Studies Laboratory Tests 12/19/24 06:55 12/17/24 20:44 Test 12/17/24 20:44 Range/Units Serum Glucose 96 74-106 mg/dL Ass/Plan Assessment s/p Plan supportive care Visit Coding OBGYN Date of Service: December 20, 2024 Billing Provider: SURJIT DUARTE DO TOURIST CABIN KEEPER Common Visit Codes: [id number] INP/OBS CARE(HIGH) SURJIT DUARTE DO December 20, 2024 07:54
[2024-12-20 11:00] VITALS: BP 115/72; PULSE 78; RESP 18; TEMP 97.8; O2SAT 98
[2024-12-20] MEDS: MEASLES, MUMPS & RUBELLA VAC(MMRII) 0.5ML SC ONE (14:05)
--- NOTE | 2024-12-20 14:57 | DVHDS2 ---
Obstetrics Discharge Summary Obstetrics Discharge Summary Date of Admission: Dec 17, 2024 Date of Discharge: December 20, 2024 Reason For Admission: Induction of Labor Procedures: NST Intrapartum Procedures: Spontaneous vaginal deliv Operative Complicat: Others (labial lac) Discharge Diagnosis: Term -Delivered Discharge Information: Activity (Other), Diet (Routine), Medications (None), Instructions (Routine), Discharge to (Home), Discarge date (-) Visit Coding OBGYN Date of Service: December 20, 2024 Billing Provider: SURJIT DUARTE DO DOLL WIG HACKLER Common Visit Codes: [id number] DISCH DAY >30MIN SURJIT DUARTE DO December 20, 2024 14:57
== END 2024-12-20 14:54 | disposition home or self-care (01) | DRG 560 ==
LOC: LDRP 19:03
PROVIDERS: ADMIT Obstetrics & Gynecology; ATTEND Obstetrics & Gynecology
PROC: 10E0XZZ Delivery of Products of Conception, External Approach (ICD-10-PCS; principal; 2024-12-18)
PROC: 0UQMXZZ Repair Vulva, External Approach (ICD-10-PCS; 2024-12-18)
PROC: 3E033VJ Introduction of Other Hormone into Peripheral Vein, Percutaneous Approach (ICD-10-PCS; 2024-12-18)
DX: O99.824 Streptococcus B carrier state complicating childbirth (principal); Z37.0 Single live birth; O42.02 Full-term premature rupture of membranes, onset of labor within 24 hours of rupture; Z23 Encounter for immunization; Z3A.39 39 weeks gestation of pregnancy; O70.0 First degree perineal laceration during delivery; O72.1 Other immediate postpartum hemorrhage
CPT/HCPCS: 36415; 59409; 62282; 80053; 80307; 81001; 81002; 85025; 85610; 85730; 86780; 86850; 86900; 86901; 94760; 96360; 96361; 96365; 96366; 96372; 96374; G0378; J2540; J2590; J7060